=== PATIENT | male | born 1980 | race African-American/Black ===

== ENCOUNTER 2019-02-21 21:10 | Emergency (ER) | payer OTHER ==
[~2019-02-21] VITALS: Ht 190.5 cm; Wt 100.0 kg
[2019-02-21 21:10] VITALS: BP 147/82
== END 2019-02-21 22:36 | disposition left against medical advice (07) ==
LOC: M ED 21:10
DX: Z53.21 Procedure and treatment not carried out due to patient leaving prior to being seen by health care provider (principal)

== ENCOUNTER → 2020-09-29 | Outpatient (CLI) | payer OTHER ==
--- NOTE | 2020-09-29 09:17 | REP ---
INDICATION: STRAIN OF MUSC/FASC/TEND AT SHLDR/UP ARM, LEFT ARM, INIT COMPARISON: None. TECHNIQUE: Internal rotation, external rotation, and Y view. FINDINGS: No acute fracture or dislocation. The acromioclavicular and glenohumeral joints are intact. No periarticular calcifications or degenerative changes are appreciated. Sub acromial space is normal. Surrounding soft tissues are unremarkable. IMPRESSION: Normal left shoulder radiographs. <Electronically signed by Fer Gonzalez > 09/29/20 [id number]
== END ==
LOC: M RAD 08:48
PROVIDERS: ATTEND Physician Assistant
DX: S46.812A Strain of other muscles, fascia and tendons at shoulder and upper arm level, left arm, initial encounter (principal); W18.30XA Fall on same level, unspecified, initial encounter; Y92.009 Unspecified place in unspecified non-institutional (private) residence as the place of occurrence of the external cause

== ENCOUNTER → 2021-01-11 | Outpatient (REF) | payer OTHER | LOC: M LAB REF 12:00 | PROVIDERS: ATTEND Ophthalmology | DX: H02.825 Cysts of left lower eyelid (principal) ==